=== PATIENT | male | born 1975 | race Hispanic/Latino ===

== ENCOUNTER 2018-10-11 11:46 | Emergency (ER) | payer OTHER ==
[2018-10-11] MEDS ORDERED: TETRACAINE HCL 0.5% 4 ML OPHTH SOLN ONE (12:25)
[2018-10-11] MEDS ORDERED: FLUORESCEIN SODIUM 1 STRIP STRIP ONE (12:26)
[2018-10-11] MEDS ORDERED: NA BORATE/BORIC AC/H2O/NACL 120 ML OPHTH IRRIG SOLN ONE (12:26)
== END 2018-10-11 13:12 | disposition home or self-care (01) ==
LOC: EDH 11:46
DX: S05.02XA Injury of conjunctiva and corneal abrasion without foreign body, left eye, initial encounter (principal); I10 Essential (primary) hypertension; Z87.891 Personal history of nicotine dependence; X58.XXXA Exposure to other specified factors, initial encounter; Y93.89 Activity, other specified; Y92.89 Other specified places as the place of occurrence of the external cause; Y99.8 Other external cause status